=== PATIENT | female | born 1975 | race Native Hawaiian/Other Pacific Islander ===

== ENCOUNTER 2016-07-24 10:17 | Emergency (ER) | payer SELFPAY ==
[~2016-07-24] VITALS: Ht 172.7 cm; Wt 103.0 kg
[2016-07-24 10:39] VITALS: BP 175/102; PULSE 108; RESP 16; TEMP 100; O2SAT 98
--- NOTE | 2016-07-24 11:12 | PD ---
HPI Chief Complaint: Cold / Flu Symptoms Time Seen by Provider: 11:12 Travel History International Travel<30 days: No Contact w/Intl Traveler<30days: No Traveled to known affect area: No History of Present Illness HPI 40-year-old female coming in with 3 day history of fever. Patient states no specific complaints otherwise other than mild congestion and occasional mild cough. Patient denies nausea, vomiting, headache, sore throat, shortness of breath, chest pain, or urinary symptoms. Patient just states fevers, 102 for the past several days. Patient has no rash or other symptoms. She has no known drug allergies. PFSH Past Medical History Influenza Vaccination: No ?: Not LMP: 1.5 WKS Social History Alcohol Use: Yes (rarely) Tobacco Use: No Substance Use: No Allergies-Medications (Allergen,Severity, Reaction): Coded Allergies: No Known Allergies (Unverified , 07/24/16) Reported Meds & Prescriptions Reported Meds & Active Scripts Active No Active Prescriptions or Reported Medications Review of Systems Except as stated in HPI: all other systems reviewed are Neg General / Constitutional: Positive: Fever, No: Chills Eyes: No: Visual changes HENT: Positive: Rhinitis, Congestion, No: Headaches, Vertigo, Lightheadedness , Sore Throat, Rhinorrhea, Nosebleed, Neck Stiffness, Neck Pain, Masses, Gingival Bleeding, Dental Difficulties, Ear Discharge, Earache, Other Cardiovascular: No: Chest Pain or Discomfort Respiratory: No: Cough, Shortness of Breath, Wheezing Gastrointestinal: No: Nausea, Vomiting, Diarrhea, Abdominal Pain Genitourinary: No: Urgency, Frequency, Dysuria Musculoskeletal: No: Pain Skin: No Rash Neurologic: No: Weakness Psychiatric: No: Depression Endocrine: No: Polydipsia Hematologic/Lymphatic: No: Easy Bruising Physical Exam Narrative GENERAL: Patient appears no acute distress. SKIN: Warm and mild diaphoresis. Normal color. Normal turgor. No rash. HEAD: Atraumatic. Normocephalic. EYES: Pupils equal and round. No scleral icterus. No injection or drainage. ENT: No nasal bleeding or discharge. Mucous membranes pink and moist. Pharynx is clear. No sinus tenderness to palpation. Both TMs to sharp light reflex bilaterally with no injection. NECK: Trachea midline. No JVD. CARDIOVASCULAR: Regular rate and rhythm. RESPIRATORY: No accessory muscle use. Clear to auscultation. Breath sounds equal bilaterally. GASTROINTESTINAL: Abdomen soft, non-tender, nondistended. Hepatic and splenic margins not palpable. MUSCULOSKELETAL: Extremities without clubbing, cyanosis, or edema. No obvious deformities. NEUROLOGICAL: Awake and alert. No obvious cranial nerve deficits. Motor grossly within normal limits. Five out of 5 muscle strength in the arms and legs. Normal speech. PSYCHIATRIC: Appropriate mood and affect; insight and judgment normal. Data Data Last Documented VS Vital Signs Date Time Temp Pulse Resp B/P Pulse Ox O2 Delivery O2 Flow Rate FiO2 07/24/16 10:39 100.0 108 16 175/102 98 MDM Medical Decision Making Medical Screen Exam Complete: Yes Emergency Medical Condition: No Differential Diagnosis Febrile illness. Upper respiratory infection. Influenza. Narrative Course A medical screening exam was performed: At the time of evaluation the presenting medical condition was determined not to be of an emergent nature. The patient was given the option of receiving additional care, but declined. Patient was given options for additional community resources from which to obtain care. The Patient Has Been advised to seek medical attention for their presenting complaint. The patient has been advised to return to the ER at any time if an emergent condition develops. Scripts No Active Prescriptions or Reported Meds Condition: Maurice Davila Jul 24, 2016 11:12
== END 2016-07-24 11:40 | disposition left against medical advice (07) ==
LOC: PHEFT 10:17
DX: R50.9 Fever, unspecified (principal)
CPT/HCPCS: 99281

== ENCOUNTER 2016-07-27 13:06 | Emergency (ER) | payer SELFPAY ==
[~2016-07-27] VITALS: Ht 172.7 cm; Wt 102.0 kg
[2016-07-27 13:12] VITALS: BP 151/96; PULSE 98; RESP 16; TEMP 99.7; O2SAT 100
--- NOTE | 2016-07-27 13:48 | PD ---
HPI Chief Complaint: Fever Time Seen by Provider: 13:16 Travel History International Travel<30 days: Yes Contact w/Intl Traveler<30days: Yes Name of Country Traveled to: [facility] Traveled to known affect area: No History of Present Illness HPI This is a 40-year-old female who presents to the emergency department with intermittent fever for the past 4 days, up to 103 this morning, associated with some rhinorrhea and generalized fatigue and malaise. Her symptoms have not been worsening but haven't improved over the past several days. She denies any dysuria, urgency, frequency, diarrhea or sore throat. She has had some cough which has been nonproductive but this has been going on for a while. PFSH Past Medical History ?: Not LMP: 2 WEEKS AGO Social History Alcohol Use: Yes (rarely) Tobacco Use: No Substance Use: No Allergies-Medications (Allergen,Severity, Reaction): Coded Allergies: No Known Allergies (Unverified , 07/27/16) Reported Meds & Prescriptions Reported Meds & Active Scripts Active No Active Prescriptions or Reported Medications Review of Systems Except as stated in HPI: all other systems reviewed are Neg Physical Exam Narrative GENERAL:Well appearing, no acute distress SKIN: Warm and dry. HEAD: Atraumatic. Normocephalic. EYES: Pupils equal and round. No injection or drainage. ENT: Moist mucous membranes. No posterior pharyngeal erythema. NECK: Trachea midline. CARDIOVASCULAR: Regular rate and rhythm. No murmur appreciated. RESPIRATORY: Clear to auscultation. Breath sounds equal bilaterally. GASTROINTESTINAL: Abdomen soft, non-tender, nondistended. MUSCULOSKELETAL: No obvious deformities. NEUROLOGICAL: Awake and alert. No obvious cranial nerve deficits. Moving all extremities. PSYCHIATRIC: Appropriate mood and affect; insight and judgment normal. Data Data Last Documented VS Vital Signs Date Time Temp Pulse Resp B/P Pulse Ox O2 Delivery O2 Flow Rate FiO2 07/27/16 13:59 Room Air 07/27/16 13:12 99.7 98 16 151/96 100 Orders Influenzae A/B Antigen (07/27/16 13:32) Urinalysis - C+S If Indicated (07/27/16 13:32) Labs Laboratory Tests Test 07/27/16 13:45 Urine Collection Type CLEAN CATCH Urine Color STRAW Urine Turbidity CLEAR Urine pH 5.5 Urine Specific [place] 1.002 Urine Protein NEG mg/dL Urine Glucose (UA) NEG mg/dL Urine Ketones NEG mg/dL Urine Occult Blood NEG Urine Nitrite NEG Urine Bilirubin NEG Urine Leukocyte Esterase NEG Urine Squamous Epithelial 0-5 /hpf Cells Microscopic Urinalysis Comment CULT NOT INDICATED MDM Medical Decision Making Medical Screen Exam Complete: Yes Emergency Medical Condition: Yes Interpretation(s) Temperature is 99.7, mild tachycardia Urinalysis: No infection Influenza negative Differential Diagnosis Viral syndrome, influenza, urinary tract infection, sepsis Narrative Course This is a quite well-appearing 40-year-old female who presents to the emergency department with fevers, some rhinorrhea and cough. I suspect she has a viral syndrome. She is nontoxic appearing. I think she requires any other diagnostics at this time. Influenza was negative and urinalysis was negative for infection. Patient will be discharged home with symptomatic management. Diagnosis Primary Impression: Viral syndrome Patient Instructions: General Instructions Additional Instructions: If you develop severe chest pain, shortness of breath, sweating, lightheadedness , dizziness or difficulty breathing return to the emergency department immediately. Followup with your primary care physician in 2-3 days if your symptoms are not resolved. Med/Other Pt SpecificInfo: No Change to Meds Scripts No Active Prescriptions or Reported Meds Disposition: 01 DISCHARGE HOME Condition: Stable Oxana Mar MD Jul 27, 2016 13:48
[2016-07-27 14:00] LABS: BLOOD, URINE NEG (NEG); GLUCOSE,URINE NEG (NEG); KETONE, URINE NEG (NEG); NITRITE,URINE NEG (NEG); PH, URINE 5.5 (5.0-8.5)
[2016-07-27 14:18] LABS: COMMENT (UR) CULT NOT INDICATED; CULTURE IF INDICATED CULT NOT INDICATED; METHOD OF COLLECTION CLEAN CATCH; SQUAMOUS EPITHELIAL CELL URINE 0-5 /hpf (0-5); URINE COLOR STRAW (YELLW/STRAW)
[2016-07-27 15:29] VITALS: BP 140/90; PULSE 90; RESP 18; O2SAT 98
== END 2016-07-27 15:33 | disposition home or self-care (01) ==
LOC: PHED 13:06
DX: B34.9 Viral infection, unspecified (principal)
CPT/HCPCS: 81001; 87804; 99284